=== PATIENT | female | born 1935 | race Caucasian/White ===

== ENCOUNTER 2018-06-10 16:14 | Emergency (ER) | payer OTHER ==
[2018-06-10] MEDS: KETOROLAC 15 MG INJ IM (18:54)
[2018-06-10] MEDS: HYDROCODONE/APAP (5/325) TAB PO (18:54)
[2018-06-10] MEDS ORDERED: ONDANSETRON (ODT) 4 MG TAB ODT (19:56)
[2018-06-10] MEDS: ONDANSETRON (ODT) 4 MG TAB ODT (19:58)
== END 2018-06-10 19:52 | disposition home or self-care (01) ==
LOC: FTE 16:14
DX: M25.561 Pain in right knee (principal); M17.9 Osteoarthritis of knee, unspecified
CPT/HCPCS: 73562; 96372; 99284-25